=== PATIENT | male | born 2005 | race African-American/Black ===

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

== ENCOUNTER 2024-11-30 14:47 | Emergency (ER) | payer OTHER, SELFPAY ==
[2024-11-30] VITALS (13 sets, daily range): BP systolic 105–138; BP diastolic 56–70; PULSE 58–85; RESP 12–20; TEMP 36.4; O2SAT 99–100
--- NOTE | ~2024-11-30 | XR_ITS ---
EXAMINATION: XR chest 2V DATE: 11/30/2024 15:30 INDICATION: Chest pain TECHNIQUE: PA and lateral views of the chest were obtained. COMPARISON: None FINDINGS: The lungs are clear with no focal airspace opacities, pulmonary edema, pleural effusion or pneumothor ax. The cardiomediastinal silhouette is normal. Visualized bones and soft tissues are unremarkable. IMPRESSION: 1. Normal chest radiograph. Reviewed, dictated and finalized at location A. IMPRESSION: 1. Normal chest radiograph.
--- NOTE | 2024-11-30 15:00 | ECG_ITS ---
Test Date: 2024-11-30 15:05:25 Measurements Intervals [place] Rate: 78 P: 79 TX: 150 QRS: 89 QRSD: 86 T: 61 QT: 324 QTc: 371 Interpretive Statements SINUS RHYTHM WITH MARKED SINUS ARRHYTHMIA POSSIBLE LEFT ATRIAL ENLARGEMENT ST ELEVATION IN DIFFUSE LEADS- PROBABLY EARLY REPOLARIZATION BORDERLINE ECG No previous ECG available for comparison Electronically Signed On 11-30-2024 15:54:42 CDT by Keaton Menendez D.O.
[2024-11-30 15:07] LABS: Hematocrit 43.6 % (42.0-52.0); Hemoglobin 14.8 g/dL (14.0-18.0); Immature Granulocyte Percent A 0.1 % (0-0.5); Lymphocytes Absolute Auto 2.43 K/mm3 (0.9-3.2); Mean Corpuscular HGB Conc 33.9 g/dl (32-36); Mean Corpuscular Hemoglobin 30.6 pg (26-34); Mean Corpuscular Volume 90.3 fl (80-100); Nucleated Red Blood Cells Absolute Auto 0.000 K/mm3 (0.0-0.012); Nucleated Red Blood Cells Perc 0.0 % (0.0-0.2); Platelet Count Result 215 k/mm3 (150-375); Red Blood Count 4.83 M/mm3 (4.6-6.20); White Blood Count 6.9 K/mm3 (4.5-10.0)
--- OUTSIDE RECORDS SUMMARY | 2024-11-30 15:17 | XMS_ITS | Clinical Summary ---
Author Organization [facility] Address [address] [place] [address] Care Team Providers Care Platform Power Technician Name Role Phone Caro Sharpe MD Primary Care Provider [phone] Allergies Active Allergy Reactions Criticality Noted Date Comments Amoxicillin Other (See comments) 08/31/2024 Reaction: Venom-Honey Bee Hives,Swelling Medium 05/24/2019 Medications ondansetron (ZOFRAN) 4 mg tablet Take 1 tablet (4 mg total) by mouth every 6 (six) hours 15 tablet 0 Active Additional Information Patient not taking.Reported on 08/31/2024 Active Problems No known active problems Encounters Date Type Department Care Team Description 09/02/2024 Results Follow-Up [facility] at [address] [address] Lazara Moore PA Urine culture Urine, clean voided 08/31/2024 4:12 PM CDT - 08/31/2024 11:59 PM CDT Hospital Encounter [facility] [address] [place] [address] Urinary frequency Discharge Disposition: Discharge to home or self care 08/31/2024 3:30 PM CDT Office Visit [facility] at [address] [address] Zhang Levin NP Urinary frequency (Primary Dx); Acute nasopharyngitis; Fatigue, unspecified type; Chronic nonintractable headache, unspecified headache type; Rash from Last 3 Months Social History Tobacco Use Types Packs/Day Years Used Date Smoking Tobacco: Never Assessed Sex and Gender Information Value Date Recorded Sex Assigned at Not on file Legal Sex Male 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 Gender Identity Not on file Sexual Orientation Not on file Obstetrics History Last Filed Vital Signs Vital Sign Reading Time Taken Comments Blood Pressure 118/80 08/31/2024 3:31 PM CDT Pulse 96 08/31/2024 3:31 PM CDT Temperature 37.8 C (100 F) 08/31/2024 3:31 PM CDT Respiratory Rate 20 08/31/2024 3:31 PM CDT Oxygen Saturation 98% 08/31/2024 3:31 PM CDT Inhaled Oxygen Concentration - - Weight 68 kg (150 lb) 08/31/2024 3:31 PM CDT Height - - Body Mass Index - - Plan of Treatment Health Maintenance Due Date Last Done Comments Depression Screening 2004 Hepatitis C Screening 2004 Varicella Vaccines (2 of 2 - 2-dose childhood series) 03/01/2010 12/07/2009 HPV Vaccines (1 - Male 3-dos e series) 07/04/2019 Meningococcal B Vaccine (1 o f 2 - Standard) 2020 Hepatitis B Screening 2022 Regular Well Visit/Exam 18-64 2022 DTaP/Tdap/Td Vaccine (3 - Td or Tdap) 12/09/2024 12/09/2014, 04/25/2009 Influenza Vaccine (#1) 2024 Meningococcal Vaccine Aged Out 12/09/2014 No carol manuelito eligible based on patient's age to complete this topic Pneumococcal vaccine <65 Aged Out No longer eligible based on patient's age to complete this topic Procedures Procedure Name Priority Date/Time Associated Diagnosis Comments POCT URINALYSIS DIPSTICK Routine 08/31/2024 4:19 PM CDT Urinary frequency URINE CULTURE Routine 08/31/2024 4:12 PM CDT Urinary frequency POCT RAPID STREP Routine 08/31/2024 4:11 PM CDT Acute nasopharyngitis POC INFLUENZA A/B, COVID-19 ANTIGEN Routine 08/31/2024 3:53 PM CDT Acute nasopharyngitis from Last 3 Months Results * (ABNORMAL) POCT urinalysis dipstick (08/31/2024 4:19 PM CDT) Pathologist [facility] Color, Urine, POC Rosalia Clarity, ur, POC Clear Clear Glucose, ur, POC Negative Negative Bilirubin, ur, POC Negative Negative Ketones, ur, POC Negative Negative Specific Kirvin, POC 1.030 1.003 - 1.030 Blood, ur, POC Negative Negative pH, ur, POC 6.0 5.0 - 8.0 Protein, ur, POC 100.(A) Negative Urobilinogen, urine, POC 1.0 0.2 - 1.0 mg/dL Nitrite, ur, POC Negative Negative Leukocytes, ur, POC Negative Negative Lot Number [id number] Urine 08/31/2024 4:19 PM CDT Zhang Levin NP POINT OF CARE TEST ORDERABLES F inal Result * Urine culture Urine, clean voided (08/31/2024 4:12 PM CDT) Pathologist [facility] Report Final Report: Less than 100,000 colonies/mL (clinically insignificant growth based on current clinical standards) Comment:Testing performed by : [facility], [address] [place] [address] Organism (CLINICALLY INSIGNIFICANT GROWTH MADDIE MONTALVO Urine, clean voided 08/31/2024 4:12 PM CDT 09/01/2024 2:12 AM CDT Narrative MADDIE - 09/02/2024 7:02 AM CDT Testing performed by [facility] ([phone]) Zhang Levin NP LAB MICROBIOLOGY - [facility]AL [facility] Final Result MADDIE MONTALVO [address] Department [place] [address] * POCT rapid strep A (08/31/2024 4:11 PM CDT) [facility] Rapid Strep A, POC Negative Negative Swab 08/31/2024 4:11 PM CDT Zhang Levin ANODIZING LINE OPERATOR POINT OF CARE TEST ORDERABLES F inal Result * POC Influenza A/B, COVID-19 antigen (08/31/2024 3:53 PM CDT) Influenza A Ag, POC Negative Negative [facility] Influenza B Ag, POC Negative Negative [facility] COVID-19 Ag POC Presumptive Negative Presumptive Negative, Invalid [facility] Nasal 08/31/2024 3:53 PM CDT Zhang Levin ANODIZING LINE OPERATOR POINT OF CARE TEST ORDERABLES F inal Result Performing Organization Address City/State/[facility] Co de Phone Number [facility] [address] [place] [address], [facility] from Last 3 Months Insurance [facility] [employer] Care Teams Platform Power Technician Relationship Specialty Start Date End Date Caro Sharpe MD [address] [place] [address] PCP - General 07/28/16
--- OUTSIDE RECORDS SUMMARY | 2024-11-30 15:17 | XMS_ITS | Clinical Summary ---
Author Organization [facility] Address [address] [facility] [place] [address] Care Team Providers Care Senior Water Resources Engineer Name Role Phone Caro Sharpe MD Primary Care Provider [phone] Source Comments [facility],non-owned Affiliates and Associated Physician Practices is amultiple site organization consisting of ambulatory clinics and hospital sitesin [place], [place], [place] and [place]. This disclosure is being madepursuant to the Care Everywhere program and may not contain all information available regarding this patient. Last updated 18.[facility] Allergies No known active allergies Medications * Be aware that medications may not be up to date on this document. Alwaysverify current medications with the patient. polyethylene glycol 3350 (MIRALAX) powderIndicati ons:Constipati on Take 17 g by mouth once daily for 7 days. Indications: Constipation 850 g 2 5 Active ondansetron, disintegrating , (ZOFRAN ODT) 4 MG tablet Take 1 tablet by mouth every 6 hours as needed for Nausea/Vomiting Allow tablet to dissolve on the tongue 15 tablet 7 Active ibuprofen (MOTRIN) 400 MG tablet Take 1 tablet by mouth every 6 hours as needed for Pain or Fever 30 tablet 7 Active acetaminophen (TYLENOL) 325 MG tabletIndicati ons:Fever Take 2 tablets by mouth every 4 hours as needed for Fever or Pain Maximum allowable Acetaminophen amount = 4 Grams (4000 mg) / 24 hours. Reasons: Fever 60 tablet 7 Active cetirizine (ZYRTEC) 10 MG tablet Take 1 tablet by mouth once daily 30 tablet 9 Active Social History Tobacco Use Types Packs/Day Years Used Date Smoking Tobacco: Never Smokeless Tobacco: Never Alcohol Use Standard Drinks/Week Comments No 0 (1 standard drink = 0.6 oz pur e alcohol) Sex and Gender Information Value Date Recorded Sex Assigned at Not on file Legal Sex Male 3:54 PM CDT Gender Identity Not on file Sexual Orientation Not on file Last Filed Vital Signs Vital Sign Reading Time Taken Comments Blood Pressure 100/68 12/18/2018 6:03 PM CDT Pulse 100 12/18/2018 6:03 PM CDT Temperature 37.7 C (99.9 F) 12/18/2018 6:03 PM CDT Respiratory Rate 20 12/18/2018 6:03 PM CDT Oxygen Saturation 99% 11/09/2017 10: 12 AM CDT Inhaled Oxygen Concentration - - Weight 63.8 kg (140 lb 10.5 oz) 12/18/2018 6:03 PM CDT Height 154.9 cm (5' 1) 11/09/2017 10:1 2 AM CDT Body Mass Index - - Plan of Treatment Health Maintenance Due Date Last Done Comments HIV SCREENING 07/04/2019 HPV VACCINE (1 - Male 3-dose series) 07/04/2019 MENINGOCOCCAL (Group B) VACC INE SHARED DECISION-MAKING (1 of 2 - Standard) 2020 HEPATITIS C SCREENING 06/29/2022 DTAP/TDAP/TD VACCINES (1 - Tdap) 07/04/2023 HEPATITIS B VACCINE (1 of 3 - 19+ 3-dose series) 07/04/2023 COVID-19 VACCINE (1 - 2023-2 5 season) 2023 DEPRESSION SCREENING 04/21/2024 INFLUENZA VACCINE (#1) 2024 ZOSTER VACCINE (1 of 2) 2054 HIB VACCINE Aged Out No longer eligi ble based on patient's age to complete this topic MENINGOCOCCAL GROUPS A/C/Y/W VACCINE Aged Out No longer eligible b ased on patient's age to complete this topic PNEUMOCOCCAL VACCINE Aged Out No long er eligible based on patient's age to complete this topic Insurance [place] MEDICAID [facility] [place] MEDICAID [employer] Care Teams Senior Water Resources Engineer Relationship Specialty Start Date End Date Caro Sharpe MD [address] [place] [address] PCP - General Pediatrics 12/11/12
[2024-11-30 15:19] LABS: INR 1.0; Partial Thromboplastin Time 25.8 Seconds (22.3-36.8); Prothrombin Time 13.2 Seconds (11.1-14.7)
[2024-11-30 15:21] LABS: Alanine Aminotransferase 18 U/L (6-50); Albumin Level 4.8 g/dL (3.5-5.1); Alkaline Phosphatase 72 U/L (38-126); Anion Gap 7 mmol/L (4-12); Aspartate Amino Transferase 29 U/L (17-59); Bilirubin,Total 0.9 mg/dL (0.2-1.3); Blood Urea Nitrogen 15 mg/dL (9-20); Calcium 9.6 mg/dL (8.4-10.2); Carbon Dioxide 28 mmol/L (22-30); Chloride 104 mmol/L (98-107); Estimated CRCL calculation 86 ml/min; Estimated Glomerular Filt Rate > 60; Glucose 99 mg/dL (65-110); Lipase 38 U/L (23-300); Potassium 4.1 mmol/L (3.4-5.0); Sodium 139 mmol/L (137-145); Total Protein 8.8 g/dL (6.3-8.2)
[2024-11-30 15:32] LABS: Troponin I < 0.012 ng/mL (0.000-0.034)
[2024-11-30] MEDS: ASPIRIN 81 MG CHEWABLE TABLET 324 MG PO (16:55)
--- OUTSIDE RECORDS SUMMARY | 2024-11-30 17:23 | XMS_ITS | Clinical Summary ---
Author Organization [facility] Address [address] [facility] [place] [address] Care Team Providers Care Universal Grinder Tool Name Role Phone Caro Sharpe MD Primary Care Provider [phone] Source Comments [facility],non-owned Affiliates and Associated Physician Practices is amultiple site organization consisting of ambulatory clinics and hospital sitesin [place], [place], [place] and [place]. This disclosure is being madepursuant to the Care Everywhere program and may not contain all information available regarding this patient. Last updated 18.[facility] Allergies No known active allergies Medications * [...] patient's age to complete this topic Insurance [place] MEDICAID [facility] [place] MEDICAID [employer] Care Teams Universal Grinder Tool Relationship Specialty Start Date End Date Caro Sharpe MD [address] [place] [address] PCP - General Pediatrics 12/11/12
--- OUTSIDE RECORDS SUMMARY | 2024-11-30 17:23 | XMS_ITS | Clinical Summary ---
Author Organization [facility] Address [address] [place] [address] Care Team Providers Care Rn Allergy Name Role Phone Caor Sharpe MD Primary Care Provider Allergies Active Allergy Reactions Criticality Noted Date [...] Department Care Team Description 09/02/2024 Results Follow-Up [facility] at [address] [address] Lazara Moore PA Urine culture Urine, clean voided 08/31/2024 4:12 PM CDT - 08/31/2024 11:59 PM CDT Hospital Encounter [facility] [address] [place] [address] Urinary frequency Discharge Disposition: Discharge to home or self care 08/31/2024 3:30 PM CDT Office Visit [facility] Medical [facility] at [address] [address] Zhang Levin NP Urinary frequency (Primary Dx); Acute nasopharyngitis; Fatigue, unspecified type; Chronic nonintractable headache, unspecified headache type; Rash from Last 3 Months Social History Tobacco Use Types Packs/Day Years Used Date Smoking Tobacco: Never Assessed Sex and Gender Information Value Date Recorded Sex Assigned at Not on file Legal Sex Male 5:09 PM [employer]OPE [employer] Gender Identity Not on file Sexual Orientation [...] urinalysis dipstick (08/31/2024 4:19 PM CDT) Pathologist [facility] Color, Urine, POC Rosalia Clarity, ur, POC Clear Clear Glucose, ur, POC Negative Negative Bilirubin, ur, POC Negative Negative Ketones, ur, POC Negative Negative Specific [place], POC 1.030 1.003 - 1.030 Blood, ur, POC Negative Negative pH, ur, POC 6.0 5.0 - 8.0 Protein, ur, POC 100.(A) Negative Urobilinogen, urine, POC 1.0 0.2 - 1.0 mg/dL Nitrite, ur, POC Negative Negative Leukocytes, ur, POC Negative Negative Lot Number [id number] Urine 08/31/2024 4:19 PM CDT Zhang Levin NP POINT OF CARE TEST ORDERABLES F inal Result * Urine culture Urine, clean voided (08/31/2024 4:12 PM CDT) Pathologist [facility] Report Final Report: Less than 100,000 colonies/mL (clinically insignificant growth based on current clinical standards) Comment:Testing performed by : [facility], [address] [place]., [address] Organism (CLINICALLY INSIGNIFICANT GROWTH MADDIE MONTALVO Urine, clean voided 08/31/2024 4:12 PM CDT 09/01/2024 2:12 AM CDT Narrative MADDIE - 09/02/2024 7:02 AM CDT Testing performed by [facility] ([phone]) Zhang Levin NP [facility] Final Result MADDIE MONTALVO [address] Department [place] [address] * POCT rapid strep A (08/31/2024 4:11 PM CDT) [facility] Rapid Strep A, POC Negative Negative Swab 08/31/2024 4:11 PM CDT Zhang Levin COVERING MACHINE TENDER POINT OF CARE TEST ORDERABLES F inal Result * POC Influenza A/B, COVID-19 antigen (08/31/2024 3:53 PM CDT) Influenza A Ag, POC Negative Negative [facility] Influenza B Ag, POC Negative Negative [facility] COVID-19 Ag POC Presumptive Negative Presumptive Negative, Invalid [facility] Nasal 08/31/2024 3:53 PM CDT Zhang Levin COVERING MACHINE TENDER POINT OF CARE TEST ORDERABLES F inal Result Performing Organization Address City/State/[facility] Co de Phone [facility] [address] [place] [address], [facility] from Last 3 Months Insurance [facility] [employer] [employer] Care Teams Rn Allergy Relationship Specialty Start Date End Date Caro Sharpe MD [address] [place] [address] PCP - General 07/28/16
--- NOTE | 2024-11-30 18:07 | ED.CHESTPAIN ---
HPI - Chest Pain General Chief Complaint: Chest Pain Stated Complaint: chest pain that radiates to left chest Time Seen by Provider: 11/30/24 17:03 Source: patient Mode of arrival: ambulatory Limitations: no limitations History of Present Illness HPI narrative: Patient is a 19-year-old male who presents to the ED with report of left-sided chest pain. Patient reports having pain throughout his left-sided chest intermittently for a while, but states it has been worse over the past few weeks. Reports pain typically occurs at rest, denies pain with exertion. Reports having an intermittent pulsating sensation throughout his left arm with the pain. Denies current pain. Reports intermittent shortness of breath. Denies cough or cold symptoms, pain or swelling in his legs, fevers, history of heart disease or blood clots. No family history of heart disease. Related Data Allergies Allergy/AdvReac Type Severity Reaction Status Date / Time No Known Allergies Allergy Verified 11/30/24 14:52 Review of Systems Review of Systems: All systems reviewed & are unremarkable except as noted in HPI. All systems reviewed & are unremarkable except as noted in HPI and below Exam Narrative: GENERAL: Well appearing, well-nourished, non-toxic, in no acute distress. HEAD: Normocephalic, atraumatic. RESPIRATORY: Airway patent, respirations nonlabored. Clear to auscultation bilaterally, no rales, rhonchi, wheezing. CARDIOVASCULAR: Regular rate and rhythm without murmurs, rubs, or gallops. MUSCULOSKELETAL: Moves all extremities. No gross deformities. No peripheral edema. No calf tenderness. No significant chest wall tenderness. SKIN: Warm, dry, normal color. NEURO: A&O X3. Speech clear. Cranial nerves II-XII grossly intact. Steady gait. No ataxic movements. PSYCHIATRIC: Appropriate mood and affect. Normal interaction. Course Vital Signs Vital signs: Vital Signs Temperature 97.6 F 11/30/24 14:51 Pulse Rate 77 11/30/24 14:51 Respiratory Rate 16 11/30/24 14:51 Blood Pressure 135/65 11/30/24 14:51 Pulse Oximetry 99 11/30/24 14:51 Temperature 97.6 F 11/30/24 14:51 Pulse Rate 77 11/30/24 18:23 Respiratory Rate 18 11/30/24 18:23 Blood Pressure 123/56 L 11/30/24 18:23 Pulse Oximetry 99 11/30/24 18:23 Oxygen Delivery Room Air 11/30/24 16:49 MDM - Chest Pain MDM Narrative Medical decision making narrative: Patient presented to ED with several week history of intermittent left-sided chest pain. Vital signs stable upon arrival. Patient in no acute distress. Denying active chest pain. EKG w/ some nonspecific ST changes, likely early repol. Trop undetectable. HEART score =1 based on EKG. No other significant RFs for CAD. D-dimer within normal range. Chest x-ray clear. Remainder basic laboratory studies are otherwise unremarkable. Patient was updated on lab and imaging findings, overall reassuring workup. Feel patient is safe for discharge home at this time with outpatient follow-up. Recommended follow-up with PCP for further evaluation. Discussed possibility of musculoskeletal etiology, pleurisy/costochondritis. Recommended anti-inflammatories as needed. Given return precautions. Discharged in stable condition. Medical Records Data Attestation: I reviewed the patient's medical records. Lab Data Attestation: I reviewed the patient's lab results. 11/30/24 15:01 11/30/24 15:01 Labs: Lab Results 11/30/24 Range/Units 15:01 WBC 6.9 (4.5-10.0) K/mm3 RBC 4.83 (4.6-6.20) M/mm3 Hgb 14.8 (14.0-18.0) g/dL Hct 43.6 (42.0-52.0) % MCV 90.3 (80-100) fl MCH 30.6 (26-34) pg MCHC 33.9 (32-36) g/dl RDW 11.9 (11.5-14.5) % Plt Count 215 (150-375) k/mm3 MPV 10.0 (7.4-10.4) fl Immature Gran % (Auto) 0.1 (0-0.5) % Neut % (Auto) 54.3 (45.5-73.1) % Lymph % (Auto) 35.2 (18.3-44.2) % Yancey % (Auto) 7.2 (2.6-8.5) % Eos % (Auto) 2.3 (0-4.4) % Baso % (Auto) 0.9 (0.2-1.2) % Lymph # (Auto) 2.43 (0.9-3.2) K/mm3 [place]y # (Auto) 0.5 (0.1-0.6) K/mm3 Eos # (Auto) 0.2 (0-0.3) K/mm3 Baso # (Auto) 0.1 (0.0-0.1) K/mm3 Abs Immat Gran (auto) 0.01 (0.00-0.031) K/mm3 Absolute Neuts (auto) 3.8 (1.3-6.7) K/mm3 Absolute Nucleated RBC 0.000 (0.0-0.012) K/mm3 Nucleated RBC % 0.0 (0.0-0.2) % PT 13.2 (11.1-14.7) Seconds INR 1.0 APTT 25.8 (22.3-36.8) Seconds D-Dimer < 0.27 (<0.48) ug/mL Sodium 139 (137-145) mmol/L Potassium 4.1 (3.4-5.0) mmol/L Chloride 104 (98-107) mmol/L Carbon Dioxide 28 (22-30) mmol/L Anion Gap 7 (4-12) mmol/L BUN 15 (9-20) mg/dL Creatinine 1.17 (0.7-1.3) mg/dL Estim Creat Clear Calc 86 ml/min Estimated GFR > 60 (59 - ) Glucose 99 (65-110) mg/dL Calcium 9.6 (8.4-10.2) mg/dL Total Bilirubin 0.9 (0.2-1.3) mg/dL AST 29 (17-59) U/L ALT 18 (6-50) U/L Alkaline Phosphatase 72 (38-126) U/L Troponin I < 0.012 (0.000-0.034) ng/mL Total Protein 8.8 H (6.3-8.2) g/dL Albumin 4.8 (3.5-5.1) g/dL Lipase 38 (23-300) U/L Imaging Data Attestation: I personally reviewed and interpreted this imaging study as follows: Radiologist's impression: ITS Impressions Chest X-Ray 11/30/24 15:40 IMPRESSION: 1. Normal chest radiograph. ECG Data EKG #1: Attestation: I personally reviewed and interpreted this ECG as follows: ECG completion date: 11/30/24 ECG completion time: 15:05 EKG Interpretation: normal rate (78), sinus rhythm (with sinus arrhythmia) and non-specific ST changes (early repol) Discharge Plan Discharge Clinical Impression: Atypical chest pain Patient Disposition: Home Condition: Stable Instructions: Antibiotic Form, Chest Pain (ED), Pleurisy (ED), Costochondritis (ED), Chest Wall Pain (ED) Additional Instructions: Your work up here was reassuring against a cardiac cause of your chest pain. Recommend Tylenol/ibuprofen as needed for pain. Recommend following up with your primary care doctor for further evaluation. Return to the ED if you experience worsening or severe pain, significant shortness of breath, unable to keep down food or drink, pain or swelling in her legs, or any other symptoms of concern. Patient Language: Bhutanese Prescriptions: No Action doxycycline hyclate 100 mg tablet 100 mg PO BID 7 Days Qty: 14 0RF prednisone 20 mg tablet 20 mg PO BID 5 Days Qty: 10 0RF Follow-up/Referrals: PHYSICIAN,TAPPING MACHINE OPERATOR AUTOMATIC [Primary Care Provider] - Jose Marinelli MD [Physician] - (PRIMARY CARE) Time of Disposition: 18:18 Quality HEART score for chest pain patients History: slightly suspicious ECG: non specific repolarization disturbance/LBTB/PM Age: < or = to 45 years Risk factors: no risk factors known Troponin: < or = to 1x normal limit Heart score: 1
== END 2024-11-30 18:24 | disposition home or self-care (01) ==
PROVIDERS: Emergency Medicine; Emergency Provider Physician Assistant
DX: R07.89 Other chest pain (principal)
CPT/HCPCS: 36415; 71046; 80053; 83690; 84484; 85025; 85380; 85610; 85730; 93005; 99284; A9270